=== PATIENT | male | born 1980 | race Caucasian/White ===

== ENCOUNTER 2019-02-15 17:03 | Observation (INO) | payer OTHER, SELFPAY ==
--- NOTE | 2019-02-15 17:41 | RAD ---
RADIOGRAPH CHEST 1 VIEW: 02/15/19 HISTORY: 38-year-old male with chest pain, palpitations, and dyspnea. FINDINGS: The visualized lung fleming are clear. The cardiomediastinal silhouette and hilar shadows are normal. The lateral costophrenic angles are sharp. The osseous structures appear normal. There is no pneu mothorax. IMPRESSION: Negative. jn [] POS: TPC
[2019-02-15 18:07] LABS: #Eosinphils 0.1 thou/uL (0.0-0.7); #Lymphocytes 1.2 thou/uL (1.20-3.40); #Monocytes 0.4 thou/uL (0.11-0.59); #Neutrophils 4.7 thou/uL (1.40-6.50); %Basophils 0.7 % (0.0-1.0); %Eosinophils 1.8 % (0.0-10.0); %Lymphocytes 19.2 % (21.0-51.0); %Monocytes 6.2 % (0.0-10.0); %Neutrophils 72.1 % (42.0-75.0); Hemoglobin 15.8 g/dL (14.0-18.0); Mean Corpuscular HGB CONC 34.5 g/dL (32.0-36.0); Mean Corpuscular Hemoglobin 30.2 pg (27.0-31.0); Mean Corpuscular Volume 87.4 fL (78.0-98.0); Mean Platelet Volume 9.1 fL (7.4-10.4); Platelet Count 213 thou/uL (130-400); RBC Distribution Width 12.2 % (11.5-14.5); Red Blood Cell (RBC) Count 5.23 mill/uL (4.70-6.10); White Blood Cell (WBC) Count 6.5 thou/uL (4.8-10.8)
[2019-02-15 18:30] LABS: ALT (SGPT) 26 U/L (8-55); AST (SGOT) 14 U/L (5-34); Albumin 4.5 g/dL (3.5-5.0); Alkaline Phosphatase 82 U/L (40-150); Anion Gap 13 mmol/L (10-20); BUN (Urea Nitrogen) 14 mg/dL (8.9-20.6); Bilirubin, Total 0.7 mg/dL (0.2-1.2); Calc. Creatinine Clearance 0 mL/min (70-130); Calcium 9.6 mg/dL (7.8-10.44); Carbon Dioxide 26 mmol/L (22-29); Chloride 104 mmol/L (98-107); Estimated GFR-MDRD 60; Globulin 2.8 g/dL (2.4-3.5); Glucose 98 mg/dL (70-105); Lipase 39 U/L (8-78); Potassium 4.5 mmol/L (3.5-5.1); Protein, Total 7.3 g/dL (6.0-8.3); Sodium 138 mmol/L (136-145)
[2019-02-15 19:21] LABS: Acetaminophen Less than 6.0 mcg/mL (10.0-30.0); Alcohol Less than 10 mg/dL (Less than 10); Salicylate Less than 8.0 mg/dL (15.0-30.0)
--- NOTE | 2019-02-15 19:31 | ULT ---
Exam: Thyroid ultrasound HISTORY: Palpitations. Difficulty swallowing. Familial history of hyperthyroidism FINDINGS: Right thyroid lobe measures 4.3 x 1.3 x 1.6 cm. Left thyroid lobe measures 1.6 x 1.0 x 4.4 cm. No masses in the left thyroid lobe. Hypoechoic focus in the right lower lobe measuring 0.7 x 0.4 x 0.5 cm. Diagnosis measures 0.3 cm. Impression: Unremarkable thyroid ultrasound Transcribed Date/Time: 02/15/2019 7:46 PM
[2019-02-15 19:41] LABS: Free T4 (Free Thyroxine) 1.16 ng/dL (0.70-1.48); Thyroid Stimulating Hormone 0.5289 uIU/mL (0.35-4.94)
[2019-02-15 20:19] LABS: Amphetamine Not Detected (NotDetected); Barbiturates Screen Not Detected (NotDetected); Benzodiazepine Screen Detected (NotDetected); Cocaine Metabolite Screen Not Detected (NotDetected); Medtox Reader # READER 4; Methadone Not Detected (NotDetected); Methamphetamine Not Detected (NotDetected); Opiate Screen Not Detected (NotDetected); Phencyclidine (PCP) Not Detected (NotDetected); THC/Cannabinoid Screen Not Detected (NotDetected); Tricyclic Screen Not Detected (NotDetected)
[2019-02-15 20:20] LABS: Medtox Control Line Valid? VALID (VALID); Oxycodone Screen Not Detected (NotDetected)
--- NOTE | 2019-02-15 20:54 | PDOC.FPRHP ---
- History of Present Illness Chief Complaint: Chest pain/palpitations History of Present Illness: 38 yo male with PMH of HTN presents for evaluation of chest pain, palpitations, and elevated BP. Patient has been seen in ED 3 times now and also his primary care physician. Each time prior patient was discharged home with precautions. He has had labs drawn, EKGs completed, and further workup all of which has been unremarkable. Patient reports that over the past 2 weeks he has had intermittent episodes where his heart will race and he will get very anxious. He also notes that his BP will elevate during those times. He does not describe overt chest pain, but mostly symptoms brought on by his palpitations. He denies recent illness, n/v/d, fevers, chills, unilateral weakness, or other complaint. ED Course: 1L NS - Allergies/Adverse Reactions Allergies Allergy/AdvReac Type Severity Reaction Status Date / Time No Known Drug Allergies Allergy Verified 02/15/19 20:54 - Home Medications Medication Instructions Recorded Confirmed Type Amlodipine [Norvasc] 5 mg PO DAILY 02/15/19 02/15/19 History Fluticasone/Salmeterol [Advair HFA 1 inh INH BID 02/15/19 02/15/19 History 115/21 Inhaler] Propranolol [Inderal] 40 mg PO BID 02/15/19 02/15/19 History clonazePAM [Clonazepam] 0.5 mg PO BID 02/15/19 02/15/19 History - History PMHx:HTN PSHx: Tendon repair FHx: DM2, Thyroid disorder Social: Patient denies tobacco or drug use. Patient report very infrequent alcohol use. Patient denies caffeine use. - Review of Systems General: denies: fever/chills ENT: denies: nasal congestion Respiratory: reports: shortness of breath. denies: cough, congestion Cardiovascular: reports: chest pain, palpitation Gastrointestinal: denies: nausea, vomiting Genitourinary: denies: incontinence Skin: denies: rashes, lesions Musculoskeletal: denies: pain, tenderness Neurological: denies: numbness, syncope Psychological: reports: anxiety - Vital signs BP: 158/78 HR: 80 RR: 18 Tmax: 98.7 Pox: 98% on RA Wt: 109 kg - Physical Exam Constitutional: NAD, awake, alert and oriented HEENT: PERRLA, grossly normal vision, grossly normal hearing, normal nasal mucosa Neck: supple, FROM Heart: RRR, normal S1/S2, no murmurs/rubs/gallops Lungs: CTAB, no respiratory distress, no wheezing Abdomen: soft, non-tender, bowel sounds present, no masses/distention Musculoskeletal: normal structure, normal tone, ROM grossly normal Neurological: no focal deficit, CN II-XII intact, normal sensation Skin: no rash/lesions, good turgor, capillary refill <2 seconds Heme/Lymphatic: no unusual bruising or bleeding Psychiatric: normal mood and affect, good judgment and insight, intact recent and remote memory FMR H&P: Results - Labs Result Diagrams: 02/15/19 17:54 02/15/19 17:54 Lab results: WBC 6.5 thou/uL (4.8-10.8) 02/15/19 17:54 Hgb 15.8 g/dL (14.0-18.0) 02/15/19 17:54 Hct 45.7 % (42.0-52.0) 02/15/19 17:54 MCV 87.4 fL (78.0-98.0) 02/15/19 17:54 Plt Count 213 thou/uL (130-400) 02/15/19 17:54 Neutrophils % 72.1 % (42.0-75.0) 02/15/19 17:54 Sodium 138 mmol/L (136-145) 02/15/19 17:54 Potassium 4.5 mmol/L (3.5-5.1) 02/15/19 17:54 Chloride 104 mmol/L (98-107) 02/15/19 17:54 Carbon Dioxide 26 mmol/L (22-29) 02/15/19 17:54 BUN 14 mg/dL (8.9-20.6) 02/15/19 17:54 Creatinine 1.34 mg/dL (0.7-1.3) H 02/15/19 17:54 Glucose 98 mg/dL (70-105) 02/15/19 17:54 Calcium 9.6 mg/dL (7.8-10.44) 02/15/19 17:54 Total Bilirubin 0.7 mg/dL (0.2-1.2) 02/15/19 17:54 AST 14 U/L (5-34) 02/15/19 17:54 ALT 26 U/L (8-55) 02/15/19 17:54 Alkaline Phosphatase 82 U/L (40-150) 02/15/19 17:54 Serum Total Protein 7.3 g/dL (6.0-8.3) 02/15/19 17:54 Albumin 4.5 g/dL (3.5-5.0) 02/15/19 17:54 Lipase 39 U/L (8-78) 02/15/19 17:54 - EKG Interpretation EK lead EKG shows normal sinus rhythm, Rate (beats per minute): 78, with no ectopics, Conduction normal, ST segments normal - Radiology Interpretation Chest x-ray Status: image reviewed by me, report reviewed by me (NAD) Other Status: report reviewed by me (Thyroid US: NAD) FMR H&P: A/P - Problem List (1) Heart palpitations Current Visit: Yes Status: Acute Code(s): R00.2 - PALPITATIONS (2) Chest pain Current Visit: Yes Status: Acute Code(s): R07.9 - CHEST PAIN, UNSPECIFIED (3) Hypertension Current Visit: Yes Status: Acute Code(s): I10 - ESSENTIAL (PRIMARY) HYPERTENSION (4) Anxiety Current Visit: Yes Status: Acute Code(s): F41.9 - ANXIETY DISORDER, UNSPECIFIED (5) SHANTELL (acute kidney injury) Current Visit: Yes Status: Acute Code(s): N17.9 - ACUTE KIDNEY FAILURE, UNSPECIFIED - Plan 1. Palpitations - Unknown etiology - Recommend outpatient follow up with Cardiology and possible holter monitor placement - Will observe on telemetry for any acute arrhythmias 2. Chest pain - HEART score 1 - Will plan for treadmill stress test in AM - Unlikely to be of cardiac nature 3. HTN - Continue home meds - Likely will need titration as outpatient 4. Anxiety - Recently began on clonazepam - Would recommend SSRI for better long-term control - Will leave to PCP for further management 5. SHANTELL - SHANTELL vs CKD - Will repeat BMP in AM - Recommend oral hydration CODE STATUS: FULL CODE Disposition: Stable, will observe in telemetry with plan to discharge home tomorrow.
[2019-02-15] MEDS ORDERED: Ondansetron ODT 4 MG TAB PO PRN (21:50)
[2019-02-15 22:12] VITALS: BMI 34.9
[2019-02-15] MEDS ORDERED: hydrALAZINE 20 MG/ML VIAL SLOW IVP PRN (22:15)
[2019-02-15] MEDS ORDERED: clonazePAM 0.5 MG TAB PO SCH (22:30)
[2019-02-16 00:50] LABS: Troponin I Less than 0.010 ng/mL (< 0.028)
[2019-02-16 02:46] LABS: Troponin I 0.021 ng/mL (< 0.028)
--- NOTE | 2019-02-16 05:33 | PDOC.FM ---
- Subjective Subjective: Pt states that he had one instance during the night of palpitations described as a feeling of his heart racing. He denies any chest pain or shortness of breath with this. He is planned to have a stress test performed today, pt's questions about this study were answered and he expressed understanding. - Objective MAR Reviewed: Yes Vital Signs & Weight: Vital Signs (12 hours) Temp Pulse Resp BP Pulse Ox 02/16/19 00:58 96 02/15/19 23:42 97.6 F 74 12 133/90 96 02/15/19 22:30 71 158/98 H 02/15/19 22:00 71 184/120 H 02/15/19 21:48 97.9 F 68 20 191/120 H 100 Weight Weight 110.677 kg Result Diagrams: 02/15/19 17:54 02/16/19 04:58 Phys Exam - Physical Examination Constitutional: NAD HEENT: moist MMs Neck: no JVD, full ROM Respiratory: no wheezing, no rales, clear to auscultation bilateral Cardiovascular: RRR, no significant murmur, no rub Gastrointestinal: soft, non-tender Musculoskeletal: no edema, pulses present Neurological: moves all 4 limbs Psychiatric: normal affect, A&O x 3 Dx/Plan (1) SHANTELL (acute kidney injury) Code(s): N17.9 - ACUTE KIDNEY FAILURE, UNSPECIFIED Status: Acute (2) Anxiety Code(s): F41.9 - ANXIETY DISORDER, UNSPECIFIED Status: Acute (3) Chest pain Code(s): R07.9 - CHEST PAIN, UNSPECIFIED Status: Acute (4) Heart palpitations Code(s): R00.2 - PALPITATIONS Status: Acute (5) Hypertension Code(s): I10 - ESSENTIAL (PRIMARY) HYPERTENSION Status: Acute (6) Tachycardia, paroxysmal Code(s): I47.9 - PAROXYSMAL TACHYCARDIA, UNSPECIFIED Status: Acute - Plan Plan: Palpitations - Unknown etiology - ED: TSH nml, T4 nml, Thyroid ultrasound normal - Admitted to telemetry - One run of sinus tachycardia with rate ~130 while pt was sleeping, sx woke him up - Stress today - Recommend outpt cardiology followup, likely holter monitor - Ordered 24hr metanephrines and catecholamines - r/o pheo - Diltiazem CD 120 daily Chest pain - HEART score 1 - Negative serial troponins - Will plan for treadmill stress test in AM HTN - Continue home meds - Likely will need titration as outpatient Anxiety - Recently began on clonazepam - 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
[2019-02-16 05:34] LABS: Anion Gap 10 mmol/L (10-20); BUN (Urea Nitrogen) 13 mg/dL (8.9-20.6); Calc. Creatinine Clearance 133 mL/min (70-130); Calcium 9.4 mg/dL (7.8-10.44); Carbon Dioxide 25 mmol/L (22-29); Cardiac Risk 4.8 (Less than 4.5); Chloride 107 mmol/L (98-107); Cholesterol 139 mg/dl (< 200 Desired); Estimated GFR-MDRD 69; Glucose 97 mg/dL (70-105); HDL Cholesterol 29 mg/dL (>60 Neg Risk); LDL Cholesterol, Calculated 86 mg/dL; Potassium 3.8 mmol/L (3.5-5.1); Sodium 138 mmol/L (136-145); Triglycerides 120 mg/dL (Less than 150)
[2019-02-16] MEDS: Mometasone/Formoterol 120 PUFF INHALER INH SCH ×2 (06:25→19:39)
[2019-02-16] MEDS: clonazePAM 0.5 MG TAB PO SCH ×2 (08:35→20:43)
[2019-02-16] MEDS ORDERED: Amlodipine 5 MG TAB PO SCH (09:00)
--- NOTE | 2019-02-16 12:50 | HP ---
I have reviewed the history and physical of Dr. Sergio Valladares. I have examined the patient. I agree with Dr. Valladares's assessment and plan. HISTORY OF PRESENT ILLNESS: Mr. Juarez is a 38-year-old man, who has been admitted for chest pain and palpitations, which have been ongoing for about 2 weeks. He also gives an interesting history of feeling his blood pressure rise up into the range of a 260 systolic that associated with his palpitations. This has been ongoing like he says for 2 weeks. He has also been having some atypical chest discomfort. PHYSICAL EXAMINATION: VITAL SIGNS: His blood pressure is currently 158/78, his heart rate is 80 and regular, respirations 18, he is afebrile, and room air O2 saturation is 98%. GENERAL: He is completely awake and alert, appearing slightly anxious, but in no acute distress. EAR, NOSE, AND THROAT: Normal mucous membranes. No erythema. No exudate. NECK: Supple. CARDIAC: Heart rhythm is regular without gallop or murmur. LUNGS: Clear. No rales or wheezes. ABDOMEN: Obese, but flat and soft. No guarding, rebound, or rigidity. NEUROLOGICAL: No focal deficits. SKIN: No rashes. LABORATORY DATA: White count is 6500, hemoglobin 15.8, and hematocrit 45.7. Chemistries; sodium 138, potassium 4.5, chloride 104, bicarb 26, BUN 14, and creatinine 1.34. Troponins are all negative. Liver enzymes normal. TSH normal. COMMENT: The patient did have a run of SVT last night and this appears to be the underlying cause of his palpitations. However, given his interesting history of facial flushing and episodic moderately severe hypertension, at least suggestive of pheochromocytoma. We will therefore go ahead and proceed with a 24-hour urine collection for VMA and metanephrine. ASSESSMENT: Supraventricular tachycardia. PLAN: We will consult Cardiology. Begin beta-blockers. Schedule echo. Schedule stress test. Job ID: [id number]
[2019-02-16] MEDS ORDERED: Propranolol 40 MG TAB PO SCH (21:00)
--- NOTE | 2019-02-17 05:09 | PDOC.FM ---
- Subjective Subjective: Patient was resting comfortably when I saw him this morning. He states he did not have any palpitations last night, but did experience some in the late afternoon yesterday. With the episodes in the afternoon, he had some shortness of breath and chest tightness. He states this is similar to the symptoms that started X2 weeks ago. He describes the episodes as a "hot flash," where he becomes sweaty, gets red around the neck and chest, has a high HR and BP, and has chest tightness. These episodes last from 2 minutes to 2 hours and take at least an hour for him to recover from. Tele monitors showed a rate in the 60-70's overnight, with NSR. Patient denies any chest pain, palpitations, anxiety or shortness of breath overnight. Stress test done yesterday. Echo to be done this morning. - Objective MAR Reviewed: Yes Vital Signs & Weight: Vital Signs (12 hours) Temp Pulse Resp BP BP BP Pulse Ox 02/17/19 04:00 97.8 F 71 18 127/84 99 02/16/19 23:18 98.2 F 69 16 140/86 96 02/16/19 19:48 83 18 172/104 H 99 02/16/19 19:39 77 14 97 02/16/19 19:14 98.1 F 93 16 176/111 H 100 Weight Weight 110.677 kg I&O: 02/15/19 02/16/19 02/17/19 06:59 06:59 06:59 Intake Total 50 720 Output Total 1300 Balance 50 -580 Result Diagrams: 02/15/19 17:54 02/16/19 04:58 Radiology Reviewed by me: Yes (CXR: normal. Thyroid US: unremarkable. ) Phys Exam - Physical Examination Constitutional: NAD HEENT: moist MMs, sclera anicteric Neck: no JVD, supple, full ROM Respiratory: no wheezing, no rales, no rhonchi, clear to auscultation bilateral Cardiovascular: RRR, no significant murmur, no rub Gastrointestinal: soft, non-tender, no distention, positive bowel sounds Musculoskeletal: no edema, pulses present Neurological: normal sensation, moves all 4 limbs Psychiatric: normal affect, A&O x 3 Skin: no rash, normal turgor Dx/Plan (1) Heart palpitations Code(s): R00.2 - PALPITATIONS Status: Acute (2) Chest pain Code(s): R07.9 - CHEST PAIN, UNSPECIFIED Status: Acute (3) Hypertension Code(s): I10 - ESSENTIAL (PRIMARY) HYPERTENSION Status: Acute (4) SHANTELL (acute kidney injury) Code(s): N17.9 - ACUTE KIDNEY FAILURE, UNSPECIFIED Status: Acute (5) Anxiety Code(s): F41.9 - ANXIETY DISORDER, UNSPECIFIED Status: Acute (6) Tachycardia, paroxysmal Code(s): I47.9 - PAROXYSMAL TACHYCARDIA, UNSPECIFIED Status: Acute - Plan Plan: 1. Palpitations -Most likely secondary to SVT. -Patient had non-sustained runs of SVT yesterday morning, that self converted back to sinus rhythm, and awoke him form his sleep. -He was stable overnight with NSR, rate in the 60-70's. - Metanephrine and catecholamine ordered to rule out pheochromocytoma. D/C propanolol until pheo workup resulted. -Continue Cardizem 120 mg XR -Consult cardiology 2. Atypical chest pain - likely secondary to arrhythmias - echo this morning. -stress test yesterday, pending results - Heart score of 1, because of HTN Hx 3. HTN uncontrolled - increase Amlodipine to 10 mg. -consider continued outpt follow up. 4. SHANTELL - improved, Cr 1.34--> 1.2 -continue oral hydration 5. Anxiety - continue Klonopin 6. Full code Disposition: stable, cardiology consult and echo today.
[2019-02-17] MEDS: Mometasone/Formoterol 120 PUFF INHALER INH SCH (07:37)
[2019-02-17] MEDS ORDERED: Amlodipine 5 MG TAB PO SCH (08:18)
[2019-02-17] MEDS ORDERED: Amlodipine 10 MG TAB PO SCH (09:00)
[2019-02-17] MEDS: clonazePAM 0.5 MG TAB PO SCH (09:46)
--- NOTE | 2019-02-17 11:33 | PRG ---
DATE OF SERVICE: 02/17/2019 Mr. Juarez is sitting quietly in bed, in no distress. He did have two more episodes last night of SVT. He is currently on amlodipine for blood pressure and diltiazem for his SVT. Given that he is only 38 years old, I feel it might be advantageous to have Cardiology and/or EP, evaluate the patient for ablation. We are also awaiting the results of an echocardiogram. In the event clinically, Mr. Juarez is stable and in no distress. Currently studies are underway to check him biochemically for pheochromocytoma. Job ID: [id number]
[2019-02-17 15:45] VITALS: BP 143/87; TEMP 98.2
--- NOTE | 2019-02-17 16:05 | CON ---
DATE OF CONSULTATION: HISTORY OF PRESENT ILLNESS: Louis Juarez is a 38-year-old white male, who denies any significant symptoms until 2 or 3 weeks ago. He would have episodes where he would feel his heart beating very rapidly and has actually gone to the [facility] in [place] 3 times over the last several weeks. He states that at times blood pressure would be 260/120, heart rate of 130 to 140 and he will be given medications and this would slow down. At times, he may also have some chest pressure associated with this. He denies any previous history of hypertension. He was placed on propranolol and amlodipine as well as clonazepam, but continues to have episodes. PAST MEDICAL HISTORY: Hypertension, recently diagnosed. He has had asthma since childhood and is on Advair inhaler for that. OPERATIONS: Tendon repair. FAMILY HISTORY: Negative for coronary artery disease. SOCIAL HISTORY: He does not smoke or drink. He does not drink caffeine. REVIEW OF SYSTEMS: A 10-point review of systems is otherwise unremarkable. PHYSICAL EXAMINATION: VITAL SIGNS: Blood pressure 135/90, pulse of 71, sinus rhythm on the monitor. HEENT: PERRL. NECK: Supple. CHEST: Clear. CARDIAC: S1 and S2 normal without any S3, S4, or murmurs. Carotid upstrokes normal without bruits. ABDOMEN: Normal bowel sounds without tenderness or organomegaly. EXTREMITIES: Revealed no clubbing, cyanosis, or edema. NEUROLOGIC: Grossly intact. SKIN: Warm and dry. LABORATORY DATA: EKG revealed normal sinus rhythm with nonspecific T-wave changes. He underwent treadmill testing, exercised for 9 minutes, reached 90% of his predicted heart rate. He did not have any chest pain or ST-segment changes and the treadmill was negative for ischemia. Echocardiogram revealed ejection fraction of 55% to 60%. mild left atrial enlargement, mild mitral regurgitation, mild tricuspid regurgitation. CBC is unremarkable. Sodium 138, potassium 3.8, chloride 107, carbon dioxide 25, BUN 13, creatinine 1.20. On admission, his creatinine was 1.34. Cardiac enzymes were unremarkable. Cholesterol 139, triglycerides 120, HDL 29, LDL 86. T4 and TSH are normal. Urine drug screen revealed presence of benzodiazepines. 24-hour urine catecholamines and metanephrines have been sent, but probably will not have results back until February 20 according to the lab. IMPRESSION: 1. Paroxysms of sinus tachycardia associated with hypertension. I do not feel that he has supraventricular tachycardia and that this probably just represents sinus tachycardia. This may also be associated with anxiety. Urine catecholamines and metanephrines have been sent but have not resulted as of yet. 2. Newly diagnosed hypertension. 3. Anxiety. 4. History of asthma, on Advair. PLAN: 1. I feel the propranolol should be permanently discontinued with history of asthma. Once we were sure that he has not have a pheochromocytoma, should be placed on a more cardioselective Beta Olga. 2. Acute kidney injury, which appears to have resolved. 3. Anxiety. RECOMMENDATIONS: Would seem like the next decision making point would be once we have his urine catecholamines and metanephrines back. If this is abnormal, then obviously he would need scans to try to identify the location of the pheochromocytoma. If those urine studies are negative, I would start him on moderate dose of metoprolol for blood pressure and heart rate control. A lot of these symptoms certainly could be anxiety related. Job ID: [id number] MTDD
--- NOTE | 2019-02-19 12:16 | DIS ---
DATE OF ADMISSION: 02/15/2019 DATE OF DISCHARGE: 02/17/2019 CONSULTATIONS: Cardiology, Dr. Morrison recommended discontinuation of beta gail because of his asthma. He does not feel that this is SVT, but raher sinus tachycardia. And that it also might be associated with anxiety. Follow up with urine catacholamines and metanephrines. PROCEDURES: Thyroid ultrasound. This was normal. Echocardiogram which showed 55% to 60% ejection fraction, mild left atrial dilation, mild mitral regurg, mild tricuspid regurg. DIAGNOSES: 1. Heart palpitation. 2. Atypical chest pain. 3. Hypertension, uncontrolled. 4. Acute kidney injury. 5. Anxiety. DISCHARGE MEDICATIONS: 1. Amlodipine 10 mg p.o. daily. 2. Diltiazem 120 mg daily. 3. Advair Diskus 1 inhale twice daily. 4. Clonazepam 0.5 mg b.i.d. Discontinue propanolol, discontinue amlodipine 5 mg. HISTORY OF PRESENT ILLNESS/HOSPITAL COURSE: The patient came into the ED on 02/15/2019 for having chest pain or chest tightness, palpitations, and feelings of anxiousness. This has been occurring off and on for the past 2 weeks. When these feelings come over him he gets a flush feeling, redness over his chest and shoulders, gets diaphoretic and feels his heart racing. He says his blood pressure goes very high during these spells too. In the ED, they ordered a thyroid ultrasound, TSH and T4 were drawn, all came back normal. His creatinine was elevated to 1.34. This improved to 1.2 post fluids. He had several runs of nonsustained SVT yesterday morning which self converted, but awoke the patient up from his sleep. We consulted Cardiology Dr. Morrison, who said that this is more likely sinus tachycardia and no electrophysiology consult needed and to await metanephrines and catacholamines for a total pheo workup. Stress test was done and normal. Echo was done today and showed EF of 55% to 60%. Urine metanephrines and catacholamines will be back or Sunday. We will follow up with patient on these results. DISPOSITION: The patient is stable at this time. DISCHARGE INSTRUCTIONS: 1. Discharge to home. 2. Diet, heart healthy. 3. Activity ad cathleen. 4. Follow up in 1 day with primary care. The patient's PCP is Dr. Antoine at [facility]. Job ID: [id number] MTDD
[2019-02-20 16:09] LABS: Metanephrine,Ur 46 ug/L (Undefined); Metanephrines Total-24H 138 ug/24 hr (45-290); Normetanephrine,Ur 83 ug/L (Undefined); Normetanephrines-24H U 249 ug/24 hr (82-500)
--- NOTE | 2019-02-22 11:39 | EKG ---
Test Reason : Blood Pressure : / mmHG Vent. Rate : 078 BPM Atrial Rate : 078 BPM P-R Int : 134 ms QRS Dur : 084 ms QT Int : 382 ms P-R-T Axes : 002 024 -26 degrees QTc Int : 435 ms Normal sinus rhythm Nonspecific T wave abnormality Abnormal ECG Confirmed by MABEL BERNSTEIN ([id number]), manager editorial JORDAN CONNORS ([id number]) on 02/22/2019 11:39:35 AM Referred By: Confirmed By:MABEL BERNSTEIN
== END 2019-02-17 18:43 | disposition home or self-care (01) ==
LOC: ERS 17:03 → 2SW 20:22
PROVIDERS: ADMIT Family Medicine; ATTEND Family Medicine
DX: R00.2 Palpitations (principal); R07.89 Other chest pain; I10 Essential (primary) hypertension; F41.9 Anxiety disorder, unspecified; N17.9 Acute kidney failure, unspecified; I47.9 Paroxysmal tachycardia, unspecified; J45.909 Unspecified asthma, uncomplicated; I08.1 Rheumatic disorders of both mitral and tricuspid valves; Z79.899 Other long term (current) drug therapy; Z98.890 Other specified postprocedural states
CPT/HCPCS: 36415; 71045; 76536; 80048; 80053; 80061; 80306; 80307; 82384; 83690; 83835; 84439; 84443; 84484; 85025; 93005; 93017; 93306; 94664; 94760; 96360; G0378

== ENCOUNTER 2019-02-17 23:14 | Emergency (ER) | payer OTHER ==
[2019-02-18 00:02] LABS: #Eosinphils 0.3 thou/uL (0.0-0.7); #Lymphocytes 1.6 thou/uL (1.20-3.40); #Monocytes 0.5 thou/uL (0.11-0.59); #Neutrophils 5.1 thou/uL (1.40-6.50); %Basophils 0.6 % (0.0-1.0); %Eosinophils 3.8 % (0.0-10.0); %Lymphocytes 20.9 % (21.0-51.0); %Monocytes 6.1 % (0.0-10.0); %Neutrophils 68.6 % (42.0-75.0); Hemoglobin 16.8 g/dL (14.0-18.0); Mean Corpuscular HGB CONC 34.8 g/dL (32.0-36.0); Mean Corpuscular Hemoglobin 30.3 pg (27.0-31.0); Mean Corpuscular Volume 87.2 fL (78.0-98.0); Mean Platelet Volume 9.4 fL (7.4-10.4); Platelet Count 213 thou/uL (130-400); RBC Distribution Width 12.2 % (11.5-14.5); Red Blood Cell (RBC) Count 5.53 mill/uL (4.70-6.10); White Blood Cell (WBC) Count 7.5 thou/uL (4.8-10.8)
[2019-02-18 00:22] LABS: ALT (SGPT) 23 U/L (8-55); AST (SGOT) 13 U/L (5-34); Albumin 4.7 g/dL (3.5-5.0); Alkaline Phosphatase 88 U/L (40-150); Anion Gap 14 mmol/L (10-20); BUN (Urea Nitrogen) 15 mg/dL (8.9-20.6); Bilirubin, Total 0.6 mg/dL (0.2-1.2); CK (CPK) 28 U/L (30-200); Calc. Creatinine Clearance 0 mL/min (70-130); Calcium 9.9 mg/dL (7.8-10.44); Carbon Dioxide 25 mmol/L (22-29); Chloride 103 mmol/L (98-107); Estimated GFR-MDRD 67; Globulin 3.3 g/dL (2.4-3.5); Glucose 100 mg/dL (70-105); Lipase 34 U/L (8-78); Potassium 4.1 mmol/L (3.5-5.1); Sodium 138 mmol/L (136-145)
== END 2019-02-18 01:44 | disposition home or self-care (01) ==
LOC: ERS 23:14
DX: R00.2 Palpitations (principal); I10 Essential (primary) hypertension
CPT/HCPCS: 36415; 80053; 82550; 83690; 84484; 85025; 93005

== ENCOUNTER 2019-03-29 01:28 | Emergency (ER) | payer OTHER, SELFPAY | END 2019-03-29 02:44 | disposition home or self-care (01) | LOC: ERS 01:28 | DX: I10 Essential (primary) hypertension (principal); Z79.899 Other long term (current) drug therapy | CPT/HCPCS: 93005 ==